=== PATIENT | male | born 1960 | race Hispanic/Latino ===

== ENCOUNTER 2017-01-11 09:31 | Emergency (ER) | payer BC ==
[2017-01-11 09:34] VITALS: BMI 34.4
[2017-01-11 10:33] LABS: ALB/GLOB RATIO 1.3 (1.1-1.8); ALKALINE PHOSPHATASE 69 U/L (38-126); ALT/SGPT 45 U/L (7-56); AST/SGOT 30 U/L (17-59); BASO # 0.02 K/mm3 (0.0-2.0); BASO % 0.3 % (0.0-3.0); BILIRUBIN,TOTAL 0.8 mg/dL (0.2-1.3); BLOOD UREA NITROGEN 10 mg/dL (7-21); CALCIUM 9.5 mg/dL (8.4-10.5); CARBON DIOXIDE 26 mmol/L (21-33); CHLORIDE 103 mmol/L (98-107); CHOLESTEROL 179 mg/dL (130-200); EOS # 0.2 (0.0-0.7); EOS % 2.3 % (1.5-5.0); GFR AFRICAN-AMERICAN > 60; GLUCOSE,RANDOM 114 mg/dL (70-110); GRAN # 3.16 (1.4-6.5); GRAN % 48.7 % (50.0-68.0); LYMPH # 2.7 (1.2-3.4); LYMPH % 41.6 % (22.0-35.0); MEAN CELL VOLUME 91.1 fl (80.0-105.0); MEAN CORPUSCULAR HEMOGLOBIN 31.1 pg (25.0-35.0); MEAN CORPUSCULAR HGB CONC 34.1 g/dl (31.0-37.0); MEAN PLATELET VOLUME 9.9 fl (7.0-11.0); MONO # 0.5 (0.1-0.6); MONO % 7.1 % (1.0-6.0); POTASSIUM 4.2 mmol/L (3.6-5.0); RED CELL DISTRIBUTION WIDTH 13.5 % (11.5-14.5); SODIUM 142 mmol/L (132-148); TOTAL PROTEIN 7.9 g/dL (5.8-8.3); WHITE BLOOD COUNT 6.5 10^3/ul (4.5-11.0)
[2017-01-11 10:39] LABS: INR 1.05 (0.93-1.08); PARTIAL THROMBOPLASTIN TIME 30.3 Seconds (23.7-30.8)
--- NOTE | 2017-01-11 10:41 | RAD ---
PROCEDURE: CHEST RADIOGRAPH, 1 VIEW HISTORY: r/o cva COMPARISON: 08/31/2015 FINDINGS: LUNGS: Clear. PLEURA: No pneumothorax or pleural fluid seen. CARDIOVASCULAR: Normal. OSSEOUS STRUCTURES: No significant abnormalities. VISUALIZED UPPER ABDOMEN: Normal. OTHER FINDINGS: None. IMPRESSION: No active disease.
--- NOTE | 2017-01-11 10:41 | CT ---
PROCEDURE: CT HEAD WITHOUT CONTRAST. HISTORY: left facial droop r/o CVA; asym pupils COMPARISON: None available. TECHNIQUE: Axial computed tomography images were obtained through the head/brain without intravenous contrast. Radiation dose: Total exam DLP = 825.44 mGy-cm. This CT exam was performed using one or more of the following dose reduction techniques: Automated exposure control, adjustment of the mA and/or kV according to patient size, and/or use of iterative reconstruction technique. FINDINGS: HEMORRHAGE: No intracranial hemorrhage. BRAIN: No mass effect or edema. No atrophy or chronic microvascular ischemic changes. Small old lacunar infarct anterior limb left internal capsule. No evidence of acute infarct. VENTRICLES: Unremarkable. No hydrocephalus. CALVARIUM: Unremarkable. PARANASAL SINUSES: Chronic pansinusitis. MASTOID AIR CELLS: Unremarkable as visualized. No inflammatory changes. OTHER FINDINGS: None. IMPRESSION: Chronic pansinusitis. No intracranial mass, hemorrhage or evidence of acute infarct.
[2017-01-11 10:47] LABS: TROPONIN I < 0.01 ng/mL
[2017-01-11 10:48] VITALS: TEMP 98.7
--- NOTE | 2017-01-11 11:35 | ED PDOC ---
Arrival/HPI - General Chief Complaint: Weakness/Neurological Deficit Time Seen by Provider: 01/11/17 09:43 Historian: Patient - History of Present Illness Narrative History of Present Illness (Text): 01/11/17 09:46 A 56 year old male, whose past medical history includes colon cancer and colostomy, presents to the emergency department complaining of right eye dry burning sensation since this morning. Patient reports he went to bed last night at 11:00PM and states he felt normal. This morning when patient woke up, he notes experiencing right eye and right-side facial discomfort and weakness. Also, when patient was drinking Gatorade, the liquid dripped out from left side of mouth. Patient denies of any vision or speech changes, rashes, any cold, tick bites, numbness, arm or leg weakness, or any other complaints. PMD: Dr. Gordon Banks Time/Duration: Other (earlier this morning) Symptom Onset: Sudden Symptom Course: Unchanged Context: Home Past Medical History - Provider Review Nursing Documentation Reviewed: Yes - Infectious Disease Hx of Infectious Diseases: None - Cardiac Hx Cardiac Disorders: Yes Hx Hypertension: Yes Hx Pacemaker: No - Pulmonary Hx Respiratory Disorders: No - Neurological Hx Paralysis: No - HEENT Hx HEENT Disorder: (patient wears glasses for distance and reading) - Renal Hx Renal Disorder: Yes (ARF POST OF COLON SX 05/2013(RESOLVED)) Hx Kidney Stones: Yes - Endocrine/Metabolic Hx Endocrine Disorders: No - Hematological/Oncological Hx Blood Transfusions: Yes Hx Blood Transfusion Reaction: No Hx Cancer: Yes (colon cancer) - Integumentary Hx Dermatological Disorder: No - Musculoskeletal/Rheumatological Hx Musculoskeletal Disorders: Yes - Gastrointestinal Hx Gastrointestinal Disorders: Yes (COLONOSCOPY 04/16/13 ([facility]) Colon polyps) - Genitourinary/Gynecological Hx Genitourinary Disorders: No - Psychiatric Hx Emotional Abuse: No Hx Physical Abuse: No Hx Substance Use: No - Surgical History Hx Orthopedic Surgery: Yes (BACK SX) Other/Comment: 2 open and closed colostomy (reveresed), illeostomy, COLOSTOMY PRESENT - Anesthesia Hx Anesthesia: Yes Hx Anesthesia Reactions: No Hx Malignant Hyperthermia: No - Suicidal Assessment Feels Threatened In Home Enviroment: No Family/Social History - Physician Review Nursing Documentation Reviewed: Yes Family/Social History: No Known Family HX Smoking Status: Never Smoked Hx Alcohol Use: Yes (occasional) Hx Substance Use: No Hx Substance Use Treatment: No Allergies/Home Meds Allergies/Adverse Reactions: Allergies No Known Allergies Allergy (Verified 01/11/17 09:33) Home Medications: Home Meds Medication Instructions Recorded Confirmed Losartan [Cozaar] 100 mg PO DAILY 11/13/13 01/11/17 Ascorbate Calcium [Vitamin C] 500 mg PO DAILY 07/03/15 01/11/17 Multivit with Iron-Minerals 1 tab PO DAILY 07/03/15 01/11/17 [Theratrum Complete 50 Plus] Review of Systems - Physician Review All systems were reviewed & negative as marked: Yes - Review of Systems Constitutional: absent: Fevers Eyes: absent: Vision Changes ENT: Other (eye irritation, described as "smoky feeling") Musculoskeletal: Other (right facial weakness) Skin: absent: Rash, Other (tick bites) Neurological: Facial Droop (left side) Physical Exam Vital Signs Reviewed: Yes Vital Signs Temp Pulse Resp BP Pulse Ox 01/11/17 15:46 70 17 140/85 99 01/11/17 13:13 75 18 145/89 98 01/11/17 12:14 79 18 148/94 H 98 01/11/17 10:47 98.7 F 73 18 154/102 H 98 01/11/17 09:43 98.8 F 89 17 151/104 H 98 Temperature: Afebrile Blood Pressure: Hypertensive Pulse: Regular Respiratory Rate: Normal Appearance: Positive for: Well-Appearing Pain Distress: None Mental Status: Positive for: Alert and Oriented X 3 - Systems Exam Head: Present: Other (left lower face muscle weakness) Pupils: No: PERRL (assymetric (Right eye 3 mm; Left eye 4-5 mm)), Sluggish Extroacular Muscles: Present: EOMI Conjunctiva: Present: Normal Mouth: Present: Moist Mucous Membranes Pharnyx: Present: Normal. No: ERYTHEMA Nose (Internal): Present: Normal Inspection Neck: Present: Normal Range of Motion. No: Meningeal Signs, MIDLINE TENDERNESS , Paraspinal Tenderness Respiratory/Chest: Present: Clear to Auscultation, Good Air Exchange. No: Respiratory Distress, Accessory Muscle Use Cardiovascular: Present: Regular Rate and Rhythm, Normal S1, S2. No: Murmurs Abdomen: Present: Normal Bowel Sounds. No: Tenderness, Distention, Peritoneal Signs Back: Present: Normal Inspection. No: CVA Tenderness, Midline Tenderness Upper Extremity: Present: Normal Inspection, NORMAL PULSES. No: Cyanosis, Edema Lower Extremity: Present: Normal Inspection, NORMAL PULSES. No: Edema Neurological: Present: GCS=15, CN II-XII Intact, Speech Normal, Motor Func Grossly Intact, Normal Sensory Function, Normal Cerebellar Funct, Norm Deep Tendon Reflexes, Gait Normal, Memory Normal, Normal 2Pt Descrimination Skin: Present: Warm, Dry, Normal Color. No: Rashes Psychiatric: Present: Alert, Oriented x 3, Normal Insight, Normal Concentration Medical Decision Making ED Course and Treatment: 01/11/17 09:52 Impression: 56 year old male with right facial weakness and right eye irritation. Physical exam shows pupils assymetrical (right eye 3 mm; left eye 4.25 mm); left side facial muscle weakness. Differential Diagnosis included but are not limited to: CVA vs. Romero's Palsy Plan: -- EKG -- Chest X-ray -- Head CT -- Labs -- Aspirin -- Reassess and disposition Prior Visits: Notes and results from previous visits were reviewed. Patient was last seen in the emergency department on 08/31/2015 for bleeding from surgical wound. Patient was admitted. Progress Notes: EKG: Ordered, reviewed, and independently interpreted the EKG. Rate : 83 BPM Rhythm : NSR Interpretation : Q-waves in V1 and V2. Comparison : No previous EKG for comparison. 01/11/2017 10:39 Chest X-ray IMPRESSION: No active disease. Dictator : Abhishek Brody MD 01/11/2017 10:[address] IMPRESSION: Chronic pansinusitis. No intracranial mass, hemorrhage or evidence of acute infarct. Dictator : Frank Mahajan MD 01/11/17 11:[address]Thomas Banks who agrees to place patient on observation to r/o CVA. Case discussed with Dr. Lanny Rawls, Neurology who recommend MRI in light of presentation. He also sent his resident Dr. Munoz to evaluate patient. 01/11/17 15:40 MRI negative. Case discussed with Dr. Rawls and agrees that we can discharge the patient home on Acyclovir, Prednisone, Eye Patch and Drops and Aspirin 81mg PO daily. He will have to follow up with NEurology Dr. Rawls this week. Was advised to return to the ED if symptoms worsen or any other concern. - Lab Interpretations Lab Results: 01/11/17 10:06 01/11/17 10:06 Lab Results 01/11/17 10:29: Blood Type O POSITIVE, Antibody Screen Negative, BBK History Checked Patient has bt 01/11/17 10:06: Sodium 142, Potassium 4.2, Chloride 103, Carbon Dioxide 26, Anion Gap 17, BUN 10, Creatinine 0.9, Est GFR ( Amer) > 60, Est GFR (Non- Af Amer) > 60, Random Glucose 114 H, Calcium 9.5, Total Bilirubin 0.8, AST 30, ALT 45, Alkaline Phosphatase 69, Troponin I < 0.01, Total Protein 7.9, Albumin 4.5, Globulin 3.4, Albumin/Globulin Ratio 1.3, Triglycerides 239 H, Cholesterol 179, LDL Cholesterol Direct 113, HDL Cholesterol 40 01/11/17 10:06: PT 11.3, INR 1.05, APTT 30.3 01/11/17 10:06: WBC 6.5, RBC 4.83, Hgb 15.0, Hct 44.0, MCV 91.1, MCH 31.1, MCHC 34.1, RDW 13.5, Plt Count 307, MPV 9.9, Gran % 48.7 L, Lymph % (Auto) 41.6 H, [place] % (Auto) 7.1 H, Eos % (Auto) 2.3, Baso % (Auto) 0.3, Gran # 3.16, Lymph # 2.7, [place] # 0.5, Eos # 0.2, Baso # 0.02 I have reviewed the lab results: Yes - RAD Interpretation Radiology Orders: 01/11/17 09:52 CHEST ONE VIEW [RAD] Stat 01/11/17 09:53 HEAD W/O CONTRAST [CT] Stat 01/11/17 12:25 BRAIN WITHOUT CONTRAST [MRI] Stat - Medication Orders Current Medication Orders: Discontinued Medications Acyclovir (Zovirax) 400 mg PO STAT STA PRN Reason: Protocol Stop: 01/11/17 15:21 Last Admin: 01/11/17 15:45 Dose: 400 mg Aspirin (Aspirin) 325 mg PO STAT STA Stop: 01/11/17 10:49 Last Admin: 01/11/17 11:06 Dose: 325 mg Methylprednisolone (Medrol) 4 mg PO ACHS SHIRLEY Stop: 01/12/17 22:01 Methylprednisolone (Medrol) 4 mg PO TID SHIRLEY Stop: 01/14/17 18:01 Methylprednisolone (Medrol) 4 mg PO ONCE ONE Stop: 01/16/17 10:01 Methylprednisolone (Medrol) 4 mg PO TID SHIRLEY Stop: 01/14/17 10:01 Methylprednisolone (Medrol) 4 mg PO 5XD SHIRLEY Stop: 01/12/17 22:01 Prednisone (Prednisone Tab) 60 mg PO STAT STA Stop: 01/11/17 15:21 Last Admin: 01/11/17 15:46 Dose: 60 mg NIHSS Scale ([place]) Time Performed: 09:43 - How Severe is the Stoke Baseline Level of Consciousness: 0=Alert LOC to Questions: 0=Both comments correct LOC to commands: 0=Obeys both correctly Best Gaze: 0=Normal Visual: 0=No visual loss Facial: 1=Minor asymmetry Motor Arm - Left: 0=No drift Motor Arm - Right: 0=No drift Motor Leg - Left: 0=No drift Motor Leg - Right: 0=No drift Limb Ataxia: 0=Absent Sensory: 0=Normal Best Language: 0=No aphasia Dysarthia: 0=Normal articulation Extinction & Inattention (Neglect): 0=Normal, no object Score: 1 Risk Level: Minor Stroke Risk rTPA Inclusion/Exclusion - Refusal of Treatment Patient Refused Treatment: No - Inclusion Criteria for Altepase Patient is 18 years or Older: Yes The Clinical Diagnosis of Ischemic Stroke That is Causing a Potentially Disabling Neurological Deficit: No Time of Onset is Well Established to be Less Than 270 Minute Before Treatment Would Begin: No Risk/Benefit Discussed With Patient/Family Member Present: No - Scribe Statement The provider has reviewed the documentation as recorded by the Thien Devries Provider Scribe Attestation: All medical record entries made by the Scribe were at my direction and personally dictated by me. I have reviewed the chart and agree that the record accurately reflects my personal performance of the history, physical exam, medical decision making, and the department course for this patient. I have also personally directed, reviewed, and agree with the discharge instructions and disposition. Disposition/Present on Arrival - Present on Arrival Any Indicators Present on Arrival: No History of DVT/PE: No History of Uncontrolled Diabetes: No Urinary Catheter: No History of Decub. Ulcer: No History Surgical Site Infection Following: None - Disposition Have Diagnosis and Disposition been Completed?: Yes Diagnosis: Romero's palsy Disposition: HOME/ ROUTINE Disposition Time: 14:51 Patient Plan: Discharge Condition: IMPROVED Discharge Instructions (ExitCare): Romero Palsy (ED) Additional Instructions: Mr Louie, thank you for letting us take care of you today. Your provider was Dr. Alexandre. You were treated for Romero's Palsy. The emergency medical care you received today was directed at your acute symptoms. If you were prescribed any medication, please fill it and take as directed. It may take several days for your symptoms to resolve. Return to the Emergency Department if your symptoms worsen, do not improve, or if you have any other problems. Please contact your doctor or call one of the physicians/clinics you have been referred to that are listed on the Patient Visit Information form that is included in your discharge packet. Bring any paperwork you were given at discharge with you along with any medications you are taking to your follow up visit. Our treatment cannot replace ongoing medical care by a primary care provider (PCP) outside of the emergency department. Thank you for allowing the [facility] team to be part of your care today. If you had an X-Ray or CT scan: A Radiologist will review the ED reading if any change in treatment is needed we will contact you. If you had a blood, urine, or wound culture: It will take several days for the results, if any change in treatment is needed we will contact you. If you had an STI test: It will take 48 hours for the results. Please call after 1 week if you have not heard back. Prescriptions: Acyclovir 400 mg PO 5XD #50 tablet Aspirin 81 mg PO DAILY #20 tab.chew Eye Patch 1 each MC ONCE 1 Days Peg 400/Hypromellose/Glycerin [Eye Drop Tears 0.2%-0.2%-1% 15 ml] 0.3 ml OP TID PRN #1 rebecca PRN Reason: Dry Eyes predniSONE [predniSONE Tab] 60 mg PO DAILY #21 tab Referrals: Fam Rawls MD [Staff Provider] - Follow up with primary Gordon Banks MD [Staff Provider] - Follow up with primary Forms: [employer] (Lithuanian), WORK NOTE
--- NOTE | 2017-01-11 12:54 | CARD ---
APPROVED REPORT EKG Measurement Heart [id number] 142P2 [id number] <Conclusion> Normal sinus rhythm Left posterior fascicular block Septal infarct, age undetermined Abnormal ECG
--- NOTE | 2017-01-11 14:04 | MRI ---
PROCEDURE: MRI BRAIN WITHOUT CONTRAST HISTORY: cva COMPARISON: None. TECHNIQUE: Multiplanar, multisequence MR images of the brain were obtained without intravenous contrast enhancement. FINDINGS: HEMORRHAGE: None DWI: No evidence of an acute or early subacute infarction. BRAIN PARENCHYMA: No mass effect or edema. No atrophy or chronic microvascular ischemic changes. VENTRICLES: Unremarkable. No hydrocephalus. CRANIUM: Unremarkable. ORBITS: Grossly unremarkable. PARANASAL SINUSES/MASTOIDS: Mucosal thickening is seen in the maxillary sinuses. VASCULAR SYSTEM: Skull base flow voids intact. OTHER FINDINGS: None. IMPRESSION: Unremarkable non contrast enhanced MRI of the brain.
[2017-01-11 15:48] VITALS: BP 140/85; PULSE 70; RESP 17; O2SAT 99
--- NOTE | 2017-01-11 17:16 | CP.PCM.CON ---
<Delvis Munoz - Last Filed: 01/11/17 18:09> History of Present Illness - History of Present Illness History of Present Illness: Neurology Consult Note for Dr. Rawls Service Consulted for: r/o CVA HPI: This is a 56 yo M with PMH of HTN (on losartan), Colon cancer s/ p reoccurrence (currently in remission) and colectomy with colostomy, and failed colostomy reversals who presented to [facility] with complaint of R-eye irritation and sensation of dryness beginning yesterday, and L-sided facial droop present on awakening today. As per pt, he first noted abnormal sensation in his R-eye, as though he had a viral infection but without tearing or outright pain. He described no other acute complaints yesterday, and went to bed without issue. On awakening today, he reports left-sided facial weakness, which he initially ignored until he tried to drink some gatorade and it leaked out of the left side of his mouth. He had a similar result when trying to drink a glass of water afterwards. He then presented to the ED. Denies LOC, head trauma, loss of sensation in the affect side of his face, recent illness or sick contacts, fevers/chills, nausea/emesis, diarrhea/constipation, dysuria/ hematuria, chest pain, shortness of breath, or focal weakness/paresthesias of extremities. Denies any similar symptoms in the past. Does admit to recent travel to wooded areas for recreation, but denies hunting/hiking, encountering wild animals, tick bites, or any bull's eye rashes. All other ROS in 12-point system review are negative. 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 Banks Review of Systems - Review of Systems All systems: reviewed and no additional remarkable complaints except (as per HPI ) Past Patient History - Infectious Disease Hx of Infectious Diseases: None - Past Social History Smoking Status: Never Smoked - CARDIAC Hx Cardiac Disorders: Yes Hx Hypertension: Yes Hx Pacemaker: No - PULMONARY Hx Respiratory Disorders: No - NEUROLOGICAL Hx Paralysis: No - HEENT Hx HEENT Problems: (patient wears glasses for distance and reading) - RENAL Hx Chronic Kidney Disease: Yes (ARF POST OF COLON SX 05/2013(RESOLVED)) Hx Kidney Stones: Yes - ENDOCRINE/METABOLIC Hx Endocrine Disorders: No - HEMATOLOGICAL/ONCOLOGICAL Hx Blood Transfusions: Yes Hx Blood Transfusion Reaction: No Hx Cancer: Yes (colon cancer) - INTEGUMENTARY Hx Dermatological Problems: No - MUSCULOSKELETAL/RHEUMATOLOGICAL Hx Musculoskeletal Disorders: Yes - GASTROINTESTINAL Hx Gastrointestinal Disorders: Yes (COL[facility] 04/16/13 [facility] Colon polyps) - GENITOURINARY/GYNECOLOGICAL Hx Genitourinary Disorders: No - PSYCHIATRIC Hx Emotional Abuse: No Hx Physical Abuse: No Hx Substance Use: No - SURGICAL HISTORY Hx Orthopedic Surgery: Yes (BACK SX) Other/Comment: 2 open and closed colostomy (reveresed), illeostomy, COLOSTOMY PRESENT - ANESTHESIA Hx Anesthesia: Yes Hx Anesthesia Reactions: No Hx Malignant Hyperthermia: No Meds Home Medications: Home Medication List Medication Instructions Recorded Confirmed Type Acyclovir 400 mg PO 5XD #50 tablet 01/11/17 Rx Aspirin 81 mg PO DAILY #20 tab.chew 01/11/17 Rx Eye Patch 1 each MC ONCE 1 Days 01/11/17 Rx Peg 400/Hypromellose/Glycerin [Eye 0.3 ml OP TID PRN #1 rebecca 01/11/17 Rx Drop Tears 0.2%-0.2%-1% 15 ml] predniSONE [predniSONE Tab] 60 mg PO DAILY #21 tab 01/11/17 Rx Allergies/Adverse Reactions: Allergies Allergy/AdvReac Type Severity Reaction Status Date / Time No Known Allergies Allergy Verified 01/11/17 09:33 Physical Exam - Constitutional Appears: Non-toxic, No Acute Distress - Head Exam Head Exam: ATRAUMATIC. absent: NORMAL INSPECTION, NORMOCEPHALIC Additional comments: mild left-sided facial droop, L-eyelid and L-forehead spared Can close lips loosely on left side, unable to force closed to prevent passage of air or liquid, unable to fully purse lips to blow up cheeks With external seal over lips to allow cheeks to be puffed out, displays clear asymmetry, L cheek puffs out ~1/2 - 2/3rds the distance R cheek does - Eye Exam Eye Exam: EOMI. absent: Conjunctival injection, Normal appearance, PERRL, Scleral icterus Pupil Exam: Miosis (R pupil with Miosis), Unequal. absent: Fixed, Irregular Additional comments: Pupils both reactive to light testing in all layton, L pupil with great constriction due to L pupil more dilated as compared to R pupil R eye dry appearing, as compared to the left - ENT Exam ENT Exam: Mucous Membranes Moist - Respiratory Exam Respiratory Exam: Clear to Auscultation Bilateral, NORMAL BREATHING PATTERN. absent: Accessory Muscle Use, Chest Wall Tenderness, Decreased Breath Sounds, Rales, Rhonchi, Wheezes - Cardiovascular Exam Cardiovascular Exam: REGULAR RHYTHM, RRR, +S1, +S2. absent: Bradycardia, Tachycardia, Irregular Rhythm, JVD, +S4 - GI/Abdominal Exam GI & Abdominal Exam: Normal Bowel Sounds, Soft. absent: Diminished Bowel Sounds , Hyperactive Bowel Sounds, Hypoactive Bowel Sounds, Tenderness Additional comments: Colostomy with brown liquid stool and air, no blood noted, non-ischemic stoma - Extremities Exam Extremities exam: Positive for: full ROM, normal capillary refill, normal inspection, pedal pulses present. Negative for: calf tenderness, joint swelling , pedal edema, tenderness - Back Exam Back exam: absent: CVA tenderness (L), CVA tenderness (R) - Neurological Exam Neurological exam: Alert, Oriented x3 Additional comments: Sensory grossly intact and equal bilaterally in all layton Facial asymmetries as detailed in Head exam Visual layton, hearing, and facial proprioception equal bilaterally 5/5 motor strength in bilateral UE and LE, 5/5 outreach nurse strength - Psychiatric Exam Psychiatric exam: Normal Affect, Normal Mood - Skin Skin Exam: Dry, Intact, Normal Color, Warm Results - Vital Signs Recent Vital Signs: Last Vital Signs Temp 98.7 F 01/11/17 10:47 Pulse 70 01/11/17 15:46 Resp 17 01/11/17 15:46 BP 140/85 01/11/17 15:46 Pulse Ox 99 01/11/17 15:46 - Labs Result Diagrams: 01/11/17 10:06 01/11/17 10:06 Labs: Laboratory Results - last 24 hr 01/11/17 01/11/17 01/11/17 10:06 10:06 10:06 WBC 6.5 RBC 4.83 Hgb 15.0 Hct 44.0 MCV 91.1 MCH 31.1 MCHC 34.1 RDW 13.5 Plt Count 307 MPV 9.9 Gran % 48.7 L Lymph % (Auto) 41.6 H Franklin % (Auto) 7.1 H Eos % (Auto) 2.3 Baso % (Auto) 0.3 Gran # 3.16 Lymph # 2.7 Franklin # 0.5 Eos # 0.2 Baso # 0.02 PT 11.3 INR 1.05 APTT 30.3 Sodium 142 Potassium 4.2 Chloride 103 Carbon Dioxide 26 Anion Gap 17 BUN 10 Creatinine 0.9 Est GFR ( Amer) > 60 Est GFR (Non-Af Amer) > 60 Random Glucose 114 H Calcium 9.5 Total Bilirubin 0.8 AST 30 ALT 45 Alkaline Phosphatase 69 Troponin I < 0.01 Total Protein 7.9 Albumin 4.5 Globulin 3.4 Albumin/Globulin Ratio 1.3 Triglycerides 239 H Cholesterol 179 LDL Cholesterol Direct 113 HDL Cholesterol 40 Blood Type Antibody Screen BBK History Checked 01/11/17 10:29 WBC RBC Hgb Hct MCV MCH MCHC RDW Plt Count MPV Gran % Lymph % (Auto) Franklin % (Auto) Eos % (Auto) Baso % (Auto) Gran # Lymph # Franklin # Eos # Baso # PT INR APTT Sodium Potassium Chloride Carbon Dioxide Anion Gap BUN Creatinine Est GFR ( Amer) Est GFR (Non-Af Amer) Random Glucose Calcium Total Bilirubin AST ALT Alkaline Phosphatase Troponin I Total Protein Albumin Globulin Albumin/Globulin Ratio Triglycerides Cholesterol LDL Cholesterol Direct HDL Cholesterol Blood Type O POSITIVE Antibody Screen Negative BBK History Checked Patient has bt Assessment & Plan - Assessment and Plan (Free Text) Assessment: This is a 56 yo M with PMH of HTN (on losartan), Colon cancer s/p reoccurrence (currently in remission) and colectomy with colostomy, and failed colostomy reversals who presented to [facility] with complaint of R-eye irritation and sensation of dryness beginning yesterday, and L-sided facial droop present on awakening today. 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 Head CT and Brain MRI were obtained and were negative for any acute disease. Patient does have recent exposure to wooded areas, so he should have Lyme's titers drawn, can follow up with his PMD for titers. Patient should also follow up with Neurology as an outpatient for re- evaluation within 2 weeks of discharge. At this time, he is stable from neurological standpoint, and can be discharged to home from the ED. Plan: 1) Discharge on Acylovir PO 400mg 5x daily for 10 days, ASA 81mg PO daily, Medrol dose pack, and Artificial tears to affect eye BID. Scripts provided by ED. 2) Eye patch for affected eye 3) Follow up with PMD within 1 week for re-assessment, Lyme's titers 4) Follow up with Neurology within 2 weeks Patient reviewed and discussed with attending, Dr. Rawls. <Fam Rawls - Last Filed: 01/12/17 11:11> Results - Vital Signs Recent Vital Signs: Last Vital Signs Temp 98.7 F 01/11/17 10:47 Pulse 70 01/11/17 15:46 Resp 17 01/11/17 15:46 BP 140/85 01/11/17 15:46 Pulse Ox 99 01/11/17 15:46 - Labs Result Diagrams: 01/11/17 10:06 01/11/17 10:06 Labs: Laboratory Results - last 24 hr 01/11/17 01/11/17 10:06 10:29 Hemoglobin A1c 5.4 Blood Type O POSITIVE Antibody Screen Negative Attending/Attestation - Attestation I have personally seen and examined this patient.: Yes I have fully participated in the care of the patient.: Yes I have reviewed all pertinent clinical information: Yes
[2017-01-11] MEDS ORDERED: Aritificial Tears (15ml) OU SCH (18:00)
== END 2017-01-11 15:47 | disposition home or self-care (01) ==
LOC: ED 09:31 → UNDOADMOB 11:18 → ERH 11:18 → ED 15:47
DX: G51.0 Bell's palsy (principal); I10 Essential (primary) hypertension; Z85.038 Personal history of other malignant neoplasm of large intestine; Z93.3 Colostomy status
CPT/HCPCS: 70450; 70551; 71010; 80053; 80061; 83036; 84484; 85025; 85610; 85730; 86850; 86900; 93005; 99285; J8499